=== PATIENT | female | born 1990 | race Caucasian/White ===

== ENCOUNTER 2019-08-15 09:02 | Outpatient (CLI) | payer OTHER, SELFPAY ==
[2019-08-21 10:42] LABS: Tissue Transglutaminase IgA Ab 1 U/mL (<4)
[2019-08-21 12:06] LABS: Tissue Transglutaminase IgG Ab 6 U/mL (<6)
== END 2019-08-15 09:03 | disposition home or self-care (01) ==
LOC: ANHLAB 09:04
PROVIDERS: PCP Family Medicine; Visit Provider Internal Medicine Gastroenterology
DX: R14.0 Abdominal distension (gaseous) (principal); R19.8 Other specified symptoms and signs involving the digestive system and abdomen
CPT/HCPCS: 36415; 83516

== ENCOUNTER 2020-11-22 12:03 | Emergency (ER) | payer OTHER, SELFPAY ==
[2020-11-22 12:20] VITALS: BP 126/87; PULSE 90; RESP 20; TEMP 36.9; O2SAT 99
--- NOTE | 2020-11-22 12:42 | ED.NAVMDI ---
HPI - Nausea/Vomiting/Diarrhea General Chief complaint: Nausea/Vomiting/Diarrhea Stated complaint: abd pain, nausea, constipation Time Seen by Provider: 11/22/20 12:05 Source: patient and RN notes reviewed Mode of arrival: ambulatory Limitations: no limitations History of Present Illness MD elicited complaint: nausea and abdominal pain Pertinent past history: other (H pylori gastritis) Onset (ago): day(s) (1) Associated nausea: Yes Associated abdominal pain: Yes Location of pain: periumbilical, RLQ and LLQ Radiation: diffuse Pain consistency: constant Severity: moderate Quality: cramping, aching and dull Exacerbating factors: none Relieving factors: none Related Data Home Medications Medication Instructions Recorded Confirmed dicyclomine 20 mg tablet 20 mg PO BID 08/15/19 fluoxetine 20 mg capsule 20 mg PO DAILY 08/15/19 Allergies Allergy/AdvReac Type Severity Reaction Status Date / Time No Known Allergies Allergy Unverified 08/15/19 08:29 Review of Systems Review of Systems: All systems reviewed & are unremarkable except as noted in HPI and below Gastrointestinal: Gastrointestinal: Reports as per HPI, Reports abdominal pain, Reports heartburn and Reports nausea PMFSH Past Medical History Medical History Alternating constipation and diarrhea Bloating Exam Const: General: no acute distress Nutritional Appearance: obese Orientation/consciousness: patient oriented x3 HENMT: Head: normal to inspection Ears: external ears normal and TM's normal bilaterally General nose exam: Normal external nose present and Normal nares present Mouth: Yes moist mucous membranes Eyes: Cornea: corneas normal Pupils: Equal, round and reactive pupils present EOM: EOMs intact bilaterally Neck: Neck: normal visual inspection and no lymphadenopathy Chest: Chest palpation & inspection: normal inspection of the chest Resp: Effort & Inspection: normal respiratory effort Auscultation: clear to auscultation bilaterally Cardio: Rate: regular rate Rhythm: regular rhythm GI: GI Palp: Yes Soft to palpation and Yes Tenderness to palpation present (GI) (generalized ) Percussion: Yes normal to percussion and Yes other (very tender both lower quadrants. ) : General: Yes bladder normal to palpation and Yes no CVA tenderness Back/Spine/Pelvis: Back: no CVA tenderness Other: minimal paraspinal lumbosacral back Skin: General skin exam: normal color Rashes: no rashes Neuro: General: patient oriented x3, moves all extremities, no meningeal signs, no focal motor deficits and CN's II-XI intact bilaterally Extrem: General: normal to inspection Psych: Appearance: well kempt Mental Status: mental status grossly normal Affect: Anxious affect present Attitude: cooperative Thought content: Yes Normal thought content present Course Course Emergency Course: Pt was stable in the ED. less abdominal pain and cramping. Pt refused the CT abdomen and pelvis. Reevaluation(s) Date: 11/22/20 Time: 13:26 Vital Signs Vital signs: Vital Signs Temperature 36.9 C 11/22/20 12:20 Pulse Rate 90 11/22/20 12:20 Respiratory Rate 20 11/22/20 12:20 Blood Pressure 126/87 11/22/20 12:20 Pulse Oximetry 99 11/22/20 12:20 Temperature 36.9 C 11/22/20 12:20 Pulse Rate 90 11/22/20 12:20 Respiratory Rate 20 11/22/20 12:20 Blood Pressure 126/87 11/22/20 12:20 Pulse Oximetry 99 11/22/20 12:20 MDM - Nausea/Vomiting/Diarrhea Differential Diagnosis Differential diagnosis: Likely gastroenteritis and other (gastritis, cholecystitis) Medical Records Attestation: I reviewed the patient's medical records. Lab Data Attestation: I reviewed the patient's lab results. Result diagrams: 11/22/20 12:48 11/22/20 12:48 Labs: Lab Results 11/22/20 11/22/20 11/22/20 Range/Units 12:48 12:48 12:48 WBC 7.8 (4.8-10.8) K/mm3 RBC 4
[2020-11-22 13:09] LABS: Basophils Absolute Auto 0.02 K/mm3 (0.00-0.10); Basophils Percent Auto 0.3 % (0.0-1.0); Eosinophils Absolute Auto 0.05 K/mm3 (0.02-0.50); Eosinophils Percent Auto 0.6 % (1.0-6.0); Hematocrit 38.9 % (35.0-49.0); Hemoglobin 12.3 g/dL (12.0-15.0); Immature Granulocyte Absolute 0.03 K/mm3 (0.00-0.00); Immature Granulocyte Percent A 0.4 % (0.0-0.0); Lymphocytes Absolute Auto 1.07 K/mm3 (1.10-4.50); Lymphocytes Percent Auto 13.7 % (18.0-42.0); Mean Corpuscular HGB Conc 31.6 g/dL (32.0-36.0); Mean Corpuscular Hemoglobin 27.1 pg (27.0-31.0); Mean Corpuscular Volume 85.7 fL (78.0-102.0); Mean Platelet Volume 9.5 fl (9.2-11.8); Monocytes Absolute Auto 0.51 K/mm3 (0.10-0.90); Monocytes Percent Auto 6.5 % (2.0-11.0); Neutrophils Absolute Auto 6.2 K/mm3 (1.7-7.2); Neutrophils Percent Auto 78.5 % (50.0-70.0); Platelet Count Result 239 K/mm3 (150-420); Red Blood Count 4.54 M/mm3 (4.20-5.40); Red Cell Distribution Width 13.5 % (11.6-14.4); White Blood Count 7.8 K/mm3 (4.8-10.8)
[2020-11-22] MEDS: PANTOPRAZOLE SODIUM IV 40 MG VIAL IV PUSH (13:10)
[2020-11-22] MEDS: SODIUM CHLORIDE 0.9% IV 1,000 ML 150 ML IV CONT (13:11)
[2020-11-22] MEDS: ONDANSETRON INJ 4 MG/2 ML VIAL IV PUSH (13:12)
[2020-11-22] MEDS: MORPHINE SULFATE (*CRX) 2 MG/ML INJ IV PUSH (13:12)
[2020-11-22] MEDS: MAG HYDROX/ALUMINUM HYD/SIMETH 30 ML, PHENobarb/HYOSCY/ATROPINE/SCOP 32.4 MG, LIDOCAINE... PO (13:13)
[2020-11-22 13:26] LABS: Add Urine Microscopic? YES; Appearance Urine Clear (Clear); Bilirubin Urine Negative (Negative); Blood Urine Negative (Negative); Color Urine Yellow (Yellow); Glucose Urine UA Negative (Negative); Ketones Urine Trace (Negative); Leukocyte Esterase Ur Negative (Negative); Nitrate Urine Negative (Negative); Protein Urine Negative (Negative); Specific Grav Ur >= 1.030 (1.010-1.020); Urobilinogen Urine 0.2 mg/dL (0.2-1.0)
[2020-11-22 13:37] LABS: Bacteria Urine 1+ /hpf; RBC Urine 0-2 /hpf (0-2); Squamous Epithelial Cell Urine Few /hpf (Few)
[2020-11-22 13:41] LABS: Alanine Aminotransferase 21 U/L (14-59); Albumin Level 3.8 g/dL (3.4-5.0); Alkaline Phosphatase 75 U/L (46-116); Aspartate Amino Transferase 15 U/L (15-37); Bilirubin,Total 0.3 mg/dL (0.00-1.00); Blood Urea Nitrogen 13 mg/dL (7-18); Calcium 8.6 mg/dL (8.5-10.1); Carbon Dioxide 25 mmol/L (21-32); Estimated CRCL calculation 110 ml/min; Estimated Glomerular Filt Rate > 60; Glucose 99 mg/dL (70-99); Lipase 110 U/L (73-393); Total Protein 7.5 g/dL (6.4-8.2)
[2020-11-22 14:07] LABS: Pregnancy On Board Control Positive; Urine Pregnancy Test Negative
--- NOTE | 2020-11-22 14:30 | PC.NURSE ---
[address] of abd state all the pain is gone now
[2020-11-22 14:57] VITALS: BP 127/72; PULSE 77; RESP 20; TEMP 37; O2SAT 100
[2020-11-22 20:09] LABS: Anion Gap 7 mmol/L (8-16); Chloride 109 mmol/L (98-108); Osmolality Calculated 292 mOsm/kg (285-295); Potassium 4.2 mmol/L (3.5-5.1); Sodium 141 mmol/L (136-145)
== END 2020-11-22 15:00 | disposition home or self-care (01) ==
PROVIDERS: Emergency Provider Emergency Medicine; PCP Nurse Practitioner Psychiatric/Mental Health
DX: K29.70 Gastritis, unspecified, without bleeding (principal); K29.80 Duodenitis without bleeding; N30.00 Acute cystitis without hematuria
CPT/HCPCS: 36415; 80053; 81001; 81025; 83690; 85025; 96361; 96374; 96375; 99283; 99284; A9270; C9113; J2270; J2405; J7030

== ENCOUNTER 2021-03-04 11:43 | Outpatient (CLI) | payer OTHER, SELFPAY ==
--- NOTE | ~2021-03-04 | XR_ITS ---
EXAMINATION: XR thoracic spine 3V DATE: 03/04/2021 12:15 INDICATION: Thoracic back pain. TECHNIQUE: 3 views of thoracic spine were obtained. COMPARISON: Chest 2 views 04/03/2016 FINDINGS: There is 5 degrees dextrocurvature of lower thoracic spine. There are Schmorl's nodes at mu ltiple levels in lower thoracic spine. Intervertebral disc heights are normal. There are endplate ost eophytes at multiple levels. IMPRESSION: 1. Mild thoracic spondylosis. Reviewed, dictated and finalized at location B. K GREASER
--- NOTE | ~2021-03-04 | XR_ITS ---
EXAMINATION: XR lumbar spine 2-3V DATE: 03/04/2021 12:16 INDICATION: Low back pain. TECHNIQUE: 3 views of lumbar spine were obtained. COMPARISON: Lumbar spine radiographs 07/15/2011. FINDINGS: There is 5 degrees levocurvature of lumbar spine. L3 is a limbus vertebra. There is mild ch ronic anterior wedging of T12 vertebral body. Intervertebral disc heights are normal. There are endpl ate osteophytes at T12-L1 and L1-L2. The facet joints are unremarkable. IMPRESSION: 1. Mild lumbar spondylosis. Reviewed, dictated and finalized at location B. IBLE PACKER IMPRESSION: 1. Mild lumbar spondylosis.
--- NOTE | ~2021-03-04 | XR_ITS ---
EXAMINATION: XR knee RT 3V DATE: 03/04/2021 12:17 INDICATION: Right knee injury. TECHNIQUE: 3 views of right knee were obtained. COMPARISON: None. FINDINGS: Bone alignment is normal. No fracture. Joint spaces are well maintained. There is no knee j oint effusion. IMPRESSION: 1. Normal right knee. Reviewed, dictated and finalized at location B. ICE PARTS COORDINATOR IMPRESSION: 1. Normal right knee.
== END 2021-03-04 11:44 | disposition home or self-care (01) ==
LOC: CHSIMG 11:46
PROVIDERS: PCP Nurse Practitioner Psychiatric/Mental Health; Visit Provider Nurse Practitioner Psychiatric/Mental Health
DX: M54.6 Pain in thoracic spine (principal); R10.9 Unspecified abdominal pain
CPT/HCPCS: 72072; 72100; 73562

== ENCOUNTER 2022-10-12 10:21 | Outpatient (CLI) | payer SELFPAY | END 2022-10-12 10:22 | disposition home or self-care (01) | LOC: CHSLAB 10:24 | PROVIDERS: PCP Family Medicine; Visit Provider Family Medicine | DX: Z71.3 Dietary counseling and surveillance (principal) | CPT/HCPCS: 99199 ==

== ENCOUNTER 2023-05-09 10:53 | Outpatient (CLI) | payer OTHER, SELFPAY ==
--- NOTE | ~2023-05-09 | US_ITS ---
EXAMINATION: US pelvic complete w TV DATE: 05/09/2023 11:25 INDICATION: Right Adnexal Tenderness TECHNIQUE: Multiple transabdominal and endovaginal sonographic images of the pelvis were obtained. COMPARISON: None. FINDINGS: Uterus: 9.0 x 4.3 x 3.7 cm. Somewhat heterogeneous appearing uterine parenchyma with areas of shadowi ng. Endometrial complex measures 13 mm. Right Ovary: 2.6 x 1.4 x 1.8 cm. Vascular flow is present. No adnexal mass. Left Ovary: 5.6 x 3.8 x 5.6 cm. Vascular flow is present. 4.7 x 5.5 x 3.2 cm complex cyst with ground glass internal echoes and peripheral foci of echogenicity. There is physiologic free fluid in the cul-de-sac. IMPRESSION: 5.5 cm left ovarian/adnexal endometrioma. If not surgically excised, consider yearly follow-up. Heterogeneous, shadowing uterine parenchyma as can be seen with adenomyosis. Reviewed, dictated and finalized at location K. L SAWYER IMPRESSION: 5.5 cm left ovarian/adnexal endometrioma. If not surgically excised, consider y early follow-up. Heterogeneous, shadowing uterine parenchyma as can be seen with adenomyosis.
== END 2023-05-09 10:54 | disposition home or self-care (01) ==
LOC: CHSIMG 10:55
PROVIDERS: PCP Family Medicine; Visit Provider Nurse Practitioner
DX: N80.122 Deep endometriosis of left ovary (principal); R10.2 Pelvic and perineal pain
CPT/HCPCS: 76830; 76856

== ENCOUNTER 2023-05-19 00:32 | Day surgery (SDC) | payer OTHER, SELFPAY ==
--- NOTE | 2023-05-18 16:28 | P.HP_ITS ---
H&P: HPI History of Present Illness Date/Time: 05/18/23 16:28 Chief Complaint: severe left-sided pain and complex ovarian cyst on ultrasound Narrative: she 32-year-old female 1 para 1 who I saw in the office on 05/04 06/27 for follow-up from ultrasound. Her primary care ordered ultrasound and there was a complex 6cm that appears to be either a an endometrioma or a torsion. She is admitted for laparoscopic left cystectomy and possible left oophorectomy. Risks and benefits reviewed including the , aspiration bleeding transfusion perforation, bladder ureters other internal for open. She received the [employer] handout entitled laparoscopy. She had all questions answered. She asked to proceed. [facility] Past Medical History Medical History Alternating constipation and diarrhea Bloating Meds Home Medications and Allergies Home Medications Medication Instructions Recorded Confirmed Type cholestyramine (with sugar) 4 gram 4 gm PO DAILY #378 grams 08/15/19 08/15/19 Rx oral powder dicyclomine 20 mg tablet 20 mg PO BID 08/15/19 History fluoxetine 20 mg capsule (Prozac) 20 mg PO DAILY 08/15/19 History peg 3350-electrolytes 236 240 ml PO Q10M #4,000 mL 09/05/19 Rx gram-22.74 gram-6.74 gram-5.86 gram solution (Golytely) acetaminophen 325 mg capsule 650 mg PO Q8H PRN pain #20 caps 11/22/20 Rx (Tylenol) omeprazole magnesium 20 mg 20 mg PO BID #20 tabs 11/22/20 Rx tablet,delayed release (Prilosec OTC) sulfamethoxazole 800 1 tablet PO Q12H #20 tabs 11/22/20 Rx mg-trimethoprim 160 mg tablet (Bactrim DS) Allergies Allergy/AdvReac Type Severity Reaction Status Date / Time No Known Allergies Allergy Unverified 08/15/19 08:29 Exam Const: General: cooperative, healthy appearing and overweight Orientation/consciousness: oriented to person, oriented to place and oriented to time HENMT: Head: normal to inspection Resp: Effort & Inspection: normal respiratory effort Cardio: Rate: regular rate Rhythm: regular rhythm Heart sounds: S1 normal heart sound present and S2 normal heart sound present GI: Inspection: normal to inspection : External Female Exam: normal external appearance Speculum Exam - Vagina: normal appearance of the vagina Speculum Exam - Cervix: normal appearance of the cervix Bimanual Exam- Adnexa, other: Adnexal mass present on the left tender Assessment and Plan Assessment and plan (1) Pelvic pain: Code(s): R10.2 - Pelvic and perineal pain Status: Acute (2) Complex cyst of left ovary: Code(s): N83.292 - Other ovarian cyst, left side Status: Acute Plan will proceed with laparoscopy and left cystectomy possible left oophorectomy
--- NOTE | 2023-05-18 17:08 | PC.NURSE ---
Report to the Outpatient Waiting Room, entrance under the green pavilion located off [facility], at time 1400 on date 05/19/23. Planned Procedure Time: 1600. Time changes happen often and if your time is changed the preop area will call you the afternoon before. - You and your visitor will be asked to self-screen and do not enter if you have any COVID symptoms. - A mask is optional within the hospital at this time. Patients may have clear liquids (water, carbonated beverages, clear teas, apple juice) until 3 hours prior to surgery with a maximum of 20 ounces. 1300 - No food from midnight until time of surgery - Infants may have breast milk until 4 hours before surgery, formula 6 hours prior to surgery. - Children will be allowed to drink immediately following surgery. If applicable, please bring a bottle or sippy cup to assist with drinking. Juice, water, soda, and popsicles are readily available. For infants on formula, please bring formula the day of surgery. Pacifiers are allowed. Take the following medications with a SIP of water the morning of surgery: None DO NOT STOP ANY OF YOUR OTHER PRESCRIPTION MEDICATIONS PRIOR TO SURGERY ?EXCEPT THE FOLLOWING Medications to discontinue per physician Date to take last dose Please no make-up, nail turkmen, hairspray, perfume, deodorant, or body powder the day of surgery. No jewelry (including any body piercings) or valuables the day of surgery, leave them at home. Please take a shower or bath the night before, or the morning of, surgery with an antibacterial soap. Wear comfortable, loose fitting clothing. Children are encouraged to wear pajamas. - Jewelry must be removed prior to entering the operating room. Rings and piercings that are not removed may be cut off. - The hospital will not accept responsibility for valuables. - Please leave all valuables, including medications, at home the day of surgery. If you are going home after surgery, a licensed auto transport driver must drive you home. - NO public transportation without another adult if you receive anesthesia. - We recommend that an adult stay with you for 24 hours following discharge. - We also recommend that you do not drive, make important decision, drink alcoholic beverages, or take any drugs that were not prescribed by your health care provider for at least 24 hours after your discharge time. For Pediatric surgeries, we recommend two adults accompany the child home. Follow any additional instructions given to you from your surgeon. If you or anyone in your household have experienced Covid symptoms in the past week, please notify your surgeon or the nurse liaison at the phone number below for possible testing. Telephone instructions given to Patient- Marlene Marie and asked if any additional questions and then verbalized understanding. Patient advised to call surgeon office or pre surgery nurse liaison [phone] if any additional questions.
[2023-05-18 17:14] VITALS: BMI 38.8
[2023-05-19] VITALS (12 sets, daily range): BP systolic 109–136; BP diastolic 63–86; PULSE 61–90; RESP 12–20; TEMP 36.5–37.1; O2SAT 95–100
--- NOTE | 2023-05-19 06:38 | WPDHPUPDATE1 ---
History and Physical Update Update Date/Time: 05/19/23 06:38 History and Physical has been reviewed, including an updated exam of the patient. There are NO changes in the patient's condition. Risks, benefits, and alternatives have been discussed and questions answered. Patient agrees to proceed with procedure.
--- NOTE | 2023-05-19 14:19 | P.PNAN_ITS ---
Anes - Initial Pre Proc Eval Procedure: Operation Date: 05/19/23 16:00 Proposed Procedures p Laparoscopy with Left Ovarian Cystectomy, Possible Left Ovarian Oophoretomy - Santos Arriaga MD Date/Time: 05/19/23 14:19 Surgeon: Santos Arriaga MD Pre Op Diagnosis: Pain, Lt Ovarian Cyst, Possible Lt Ovarian Torsion Patient Data Age: 32 Gender: F Height: 1.63 m Weight: 102.7 kg Allergies Allergy/AdvReac Type Severity Reaction Status Date / Time No Known Allergies Allergy Verified 05/18/23 16:54 Home Medications Medication Instructions Recorded Confirmed Type Adult Multivitamin Gummies 1 gum PO DAILY 05/18/23 05/18/23 History All Day Allergy (cetirizine) 1 tab-cap PO DAILY 05/18/23 05/18/23 History dextroamphetamine-amphetamine 5 mg 5 mg PO DIRECTED 05/18/23 05/18/23 History tablet dextroamphetamine-amphetamine ER 10 mg PO DAILY 05/18/23 05/18/23 History 10 mg 24hr capsule,extend release omeprazole 40 mg capsule,delayed 40 mg PO DAILY 05/18/23 05/18/23 History release hydrocodone 5 mg-acetaminophen 325 1 tablet PO Q4H PRN pain #30 tabs 05/19/23 Rx mg tablet Patient hx anesthesia problems: none Family hx anesthesia problems: none Results Review: All pre-operative results and documents have been reviewed as part of the pre- operative evaluation. [facility] Past Medical History Medical History (Updated 05/19/23 @ 14:20 by Srinath Robbins DO) Alternating constipation and diarrhea Anxiety Asthma Bloating Social History Social History Tobacco type: e-cigarettes/vaping Alcohol intake: current Alcohol use details: monthly Spiritual care concerns: No Anes - Eval Final PreProcedure Day of Procedure 05/19/23 14:19 Patient weight: obese Heart: regular rate and rhythm Lungs: clear to auscultation Airway: Mallampati scale class 1 Neurological: alert and oriented Last oral intake: >/= 8 hours ASA classification: III Emergent: no Anesthetic plan: proceed Anesthesia type and monitoring: general ETT and standard monitoring Results Review: All pre-operative results and documents have been reviewed as part of the pre- operative evaluation. Informed Consent: The patient's anesthetic plan and its attendant risks and benefits were discussed with the patient/family/POA. Questions were solicited and answers provided to the satisfaction of the patient/family/POA.
[2023-05-19] MEDS: SCOPOLAMINE 1 MG PATCH 1 PATCH TRANSDERM (14:47)
[2023-05-19] MEDS: ACETAMINOPHEN 500 MG TABLET 1000 MG PO (14:48)
[2023-05-19] MEDS: KETOROLAC 15 MG/ML VIAL (*BKC) IV PUSH (14:48)
[2023-05-19] MEDS: LACTATED RINGERS 1,000 ML 30 ML IV CONT ×2 (14:50→16:13)
--- NOTE | 2023-05-19 15:59 | P.OP_ITS ---
Procedure Note - Detailed Date of Procedure 05/19/23 Pre-op Diagnosis Pain, Lt Ovarian Cyst, Possible Lt Ovarian Torsion Post-op Diagnosis Other (Endometrioma) Procedure Performed laparoscopic LSO lysis of adhesions Surgeon Santos Arriaga MD Anesthesia General Indications this is a 32-year-old female with complex left ovarian cyst Findings stage IV endometriosis with endometriosis of the left and right uterosacral ligament in the each ovarian fossa atop the bladder Description of Procedure patient was prepped draped in normal sterile fashion placed in the dorsal lithotomy position. Under excellent general trach anesthesia weighted speculum placed posterior fornix vagina. Anterior lip of the cervix grasped with single- tooth tenaculum. The Caban's cannula inserted the cervix and attached to the single-tooth to be used later for uterine ablation. The bladder was emptied of clear urine the weighted speculum was removed. A supraumbilical incision made the Veress needle passed in the abdomen. Abdomen filled with CO2 gas 15mmmmmercury the 5mm trocar advanced under direct visualization assuring no injury the patient placed in Trendelenburg a suprapubic incision made. The 5mm trocar advanced under direct visualization assuring no injury in left lower quadrant incision was made and the 10mm trocar advanced under direct visualization multiple adhesions and a large endometrioma was seen this was completely encasing the the ovary and tube. The infundibulopelvic structure was skeletonized clamped burned cut and the tube and ovary removed through the left lower quadrant incision. Vigorous irrigation undertaken until clear. The opposite ovary we were was of the normal limits but there were areas of powder burn endometriosis on the bladder which was not removed. Blood loss was estimated at25cc lower site removed. The gas removed from the abdomen the upper site removed the incisions closed with 4 Monocryl glue patient went recovery in satisfactory condition. All sponge, needle, instrument counts were correct. There were no immediate complications Estimated Blood Loss 25 Drains No Packing No Pathology Yes Complications No immediate complications Condition Stable Disposition PACU
[2023-05-19] MEDS: fentaNYL CITRATE INJ (*CRX) 100 MCG/2 ML VIAL 25 MCG IV PUSH ×8 (17:02→17:27)
[2023-05-19] MEDS: ONDANSETRON INJ 4 MG/2 ML VIAL IV PUSH (17:55)
== END 2023-05-19 19:15 | disposition home or self-care (01) ==
PROVIDERS: PCP Family Medicine; Visit Provider Obstetrics & Gynecology
PROC: (CPT 49320; principal; 2023-05-19 16:00)
DX: N80.3C3 Endometriosis of bilateral uterosacral ligament(s), unspecified depth (principal); N80.102 Endometriosis of left ovary, unspecified depth; N80.A0 Endometriosis of bladder, unspecified depth; F17.290 Nicotine dependence, other tobacco product, uncomplicated; E66.9 Obesity, unspecified; Z68.38 Body mass index [BMI] 38.0-38.9, adult; N94.89 Other specified conditions associated with female genital organs and menstrual cycle; N83.02 Follicular cyst of left ovary
CPT/HCPCS: 58661; 58662; 36415; 86850; 86900; 86901; 88305; A9270; J0330; J1100; J1170; J1885; J2250; J2405; J2704; J3010; J7030; J7120

== ENCOUNTER 2023-05-22 18:07 | Emergency (ER) | payer OTHER, SELFPAY ==
--- NOTE | ~2023-05-22 | CT_ITS ---
EXAMINATION: CT abdomen pelvis w con DATE: 05/22/2023 19:36 INDICATION: Left lower quadrant pain post-op TECHNIQUE: Computed tomography (CT) of the abdomen and pelvis was performed with intravenous contrast . Automated exposure control and iterative reconstruction technique were employed. The dose-length pr oduct was 1264.01 mGy-cm. COMPARISON: None. FINDINGS: Lower thorax: Unremarkable Liver: Normal. Biliary/Gallbladder: Gallbladder is normal. No bile duct dilation. Pancreas: No mass or duct dilation. Spleen: Normal. Adrenals:No mass. Kidneys: No suspicious mass, obstructing stone, or hydronephrosis. GI tract: No small or large bowel dilation. Normal appendix. Mesentery/Peritoneum: No ascites, mass, or free air. Retroperitoneum: No mass. Pelvis: 3.2 cm gas collection in the deep left pelvis with the suggestion of mild peripheral enhancem ent. Small volume free pelvic fluid. Normal uterus and right ovary. Normal urinary bladder. Soft Tissues: Subcutaneous gas and stranding from recent surgery. No focal fluid collection. Bones: No acute osseous finding. IMPRESSION: Focal 3.2 cm fluid and gas collection in the deep left pelvis with mild peripheral enhancement, tammy rning for early abscess. Reviewed, dictated and finalized at location K. IMPRESSION: Focal 3.2 cm fluid and gas collection in the deep left pelvis with mild periphe ral enhancement, concerning for early abscess.
[2023-05-22 18:08] VITALS: BP 119/88; PULSE 84; RESP 20; TEMP 36.9; O2SAT 100
[2023-05-22 18:38] LABS: Basophils Absolute Auto 0.02 K/mm3 (0.00-0.10); Basophils Percent Auto 0.2 % (0.0-1.0); Eosinophils Absolute Auto 0.07 K/mm3 (0.02-0.50); Eosinophils Percent Auto 0.7 % (1.0-6.0); Hematocrit 36.3 % (35.0-49.0); Hemoglobin 11.8 g/dL (12.0-15.0); Immature Granulocyte Absolute 0.02 K/mm3 (0.00-0.00); Immature Granulocyte Percent A 0.2 % (0.0-0.0); Lymphocytes Absolute Auto 1.88 K/mm3 (1.10-4.50); Lymphocytes Percent Auto 18.7 % (18.0-42.0); Mean Corpuscular HGB Conc 32.5 g/dL (32-36); Mean Corpuscular Hemoglobin 26.8 pg (27.0-31.0); Mean Corpuscular Volume 82.3 fL (78.0-102.0); Monocytes Absolute Auto 0.48 K/mm3 (0.10-0.90); Monocytes Percent Auto 4.8 % (2.0-11.0); Neutrophils Absolute Auto 7.57 K/mm3 (1.70-7.20); Neutrophils Percent Auto 75.4 % (50.0-70.0); Platelet Count Result 306 K/mm3 (150-420); Red Blood Count 4.41 M/mm3 (4.20-5.40); Red Cell Distribution Width 13.6 % (11.6-14.4)
[2023-05-22] MEDS: SODIUM CHLORIDE 0.9% IV 2,000 ML 999 ML IV CONT (18:44)
[2023-05-22] MEDS: MORPHINE SULFATE (*CRX) 4 MG/ML INJ IV PUSH (18:46)
[2023-05-22] MEDS: ONDANSETRON INJ 4 MG/2 ML VIAL IV PUSH (18:46)
[2023-05-22 18:52] LABS: Alanine Aminotransferase 18 U/L (14-59); Albumin Level 3.6 g/dL (3.4-5.0); Alkaline Phosphatase 64 U/L (46-116); Anion Gap 8 mmol/L (8-16); Aspartate Amino Transferase 12 U/L (15-37); Bilirubin,Total 0.3 mg/dL (0.00-1.00); Blood Urea Nitrogen 9 mg/dL (7-18); Carbon Dioxide 31 mmol/L (21-32); Chloride 104 mmol/L (98-108); Estimated CRCL calculation 127 ml/min; Estimated Glomerular Filt Rate > 60; Glucose 93 mg/dL (70-99); Osmolality Calculated 294 mOsm/kg (285-295); Potassium 3.7 mmol/L (3.5-5.1); Sodium 143 mmol/L (136-145); Total Protein 7.4 g/dL (6.4-8.2)
--- NOTE | 2023-05-22 18:53 | ED.ABDPAIN ---
HPI - Abdominal Pain General Chief Complaint: Abdominal Pain Stated Complaint: abdominal pain - post surgical Time Seen by Provider: 05/22/23 18:19 History of Present Illness HPI narrative: This is a 32-year-old female, who 3 days ago underwent left sided LSO with removal of an endometrial tumor, who presents to the emergency department complaining of severe left lower quadrant abdominal pain. The patient states for 2 days after her surgery, she had no complications. Overnight, she began developing cramping lower abdominal pain. This gradually increased to a current 9/10. The pain is intermittent and associated with nausea, though no vomiting. She states her last bowel movement was this morning and she has since not been able to pass gas. She denies bleeding, loss of consciousness, diarrhea or dysuria. Related Data Home Medications Medication Instructions Recorded Confirmed Adult Multivitamin Gummies 1 gum PO DAILY 05/18/23 05/22/23 All Day Allergy (cetirizine) 1 tab-cap PO DAILY 05/18/23 05/22/23 dextroamphetamine-amphetamine 5 mg 5 mg PO DIRECTED 05/18/23 05/22/23 tablet dextroamphetamine-amphetamine ER 10 mg PO DAILY 05/18/23 05/22/23 10 mg 24hr capsule,extend release omeprazole 40 mg capsule,delayed 40 mg PO DAILY 05/18/23 05/22/23 release Allergies Allergy/AdvReac Type Severity Reaction Status Date / Time No Known Allergies Allergy Verified 05/22/23 18:19 Review of Systems Review of Systems: CONSTITUTIONAL: Denies fever, chills, or sweats. CARDIOVASCULAR: Denies chest pain, palpitations, or edema. RESPIRATORY: Denies cough or dyspnea. GASTROINTESTINAL: Severe abdominal pain, nausea Denies vomiting, or diarrhea. GENITOURINARY: Denies dysuria or hematuria. SKIN: Denies rash or itching. MUSCULOSKELETAL: Denies back pain, joint pain, or myalgia. NEUROLOGIC: Denies headache, numbness, dizziness, or weakness. PSYCHIATRIC: Denies anxiety or depression. [facility] Past Medical History Medical History (Updated 05/22/23 @ 20:51 by Alexandre Carvalho MD) Alternating constipation and diarrhea Anxiety Asthma Bloating Endometrioma Endometriosis Surgical History Surgical History (Updated 05/22/23 @ 19:01 by Alexandre Carvalho MD) History of left salpingo-oophorectomy 05/19/2023 Social History Social History Tobacco type: e-cigarettes/vaping Alcohol intake: current Alcohol use details: monthly Spiritual care concerns: No Exam Narrative: GENERAL: Well-developed, well-nourished, in moderate distress due to pain HEAD: Normocephalic, atraumatic. EYES: PERRLA and EOMI. CHEST: Clear to auscultation. No respiratory distress. No wheezes rales or rhonchi HEART: Regular rate and rhythm. No murmur heard. Normal peripheral pulses. ABDOMEN: Multiple well-healed laparoscopic surgical wounds without induration, erythema, bleeding or purulent drainage. Abdomen soft, tender primarily in the left lower quadrant, without rebound, mildly distended, hyperactive bowel sounds. EXTREMITIES: Normal range of motion. No edema. SKIN: Warm, dry, no rash. NEURO: Alert and oriented x3. No focal deficit. Moving all 4 limbs spontaneously PSYCH: Normal mood and affect. Course Course Emergency Course: 18:59 - Review of prior documentation shows the patient underwent left LSO with lysis of adhesions and resection of an endometrioma. The patient has a documented negative test from May 19, 2023. She has not been sexually active. 20:19 - CBC demonstrates mild anemia with hemoglobin of 11.8 but is otherwise unremarkable. Chemistries within normal limits. Lactic acid 1.2. UA not concerning for UTI. CT abdomen pelvis demonstrates Focal 3.2 cm fluid and gas collection in the deep left pelvis with mild peripheral enhancement, concerning for early abscess. will discuss patient with [facility] physician, Dr. Augustine Arriaga or on-call residential team leader to discuss an
[2023-05-22 18:57] LABS: Lactic Acid Reflex 1.2 mmol/L (0.4-2.0)
--- NOTE | 2023-05-22 19:03 | PC.NURSE ---
patient report received from DREW Crespo. patient awaiting results and plan. RN monitoring. ivf infusing.
--- NOTE | 2023-05-22 19:14 | PC.NURSE ---
patient to ct scan via stretcher per trade specialist.
--- NOTE | 2023-05-22 19:38 | PC.NURSE ---
patient returned from imaging, awaiting results. ambulatory to bathroom, reports improved pain for brief time however states her pain is still cramping .
[2023-05-22] MEDS: HYDROmorphone HCL INJ (*CRX) 2 MG/ML VIAL 0.5 MG IV PUSH (20:00)
[2023-05-22 20:06] VITALS: BP 110/63; PULSE 74; RESP 18; TEMP 37.1; O2SAT 100
--- NOTE | 2023-05-22 20:08 | PC.NURSE ---
patient medicated for pain, see MAR. first liter of NS nearing completion. patient visitor at bedside. update provided. vss. RN monitoring, call light within reach.
[2023-05-22 20:15] LABS: Appearance Urine Clear (Clear); Bilirubin Urine Negative (Negative); Blood Urine Negative (Negative); Color Urine Light Yellow (Yellow); Glucose Urine UA Negative (Negative); Ketones Urine Negative (Negative); Leukocyte Esterase Ur Negative LEU/UL (Negative); Nitrate Urine Negative (Negative); Protein Urine Negative (Negative); Specific Grav Ur <= 1.005 (1.010-1.020); Urobilinogen Urine 0.2 mg/dL (0.2-1.0)
[2023-05-22 20:18] LABS: Add Urine Microscopic? NO
--- NOTE | 2023-05-22 20:29 | PC.NURSE ---
ERP Dr. Carvalho at patient bedside for update after speaking with patient ob-solid waste landfill technician Augustine Arriaga at [facility]. plan for transfer pending bed assignment.
--- NOTE | 2023-05-22 21:04 | PC.NURSE ---
phlebotomy at bedside for blood culture draw, patient education provided. patient awake and alert, agreeable to transfer to [facility] however concerned for cost associated with taking an ambulance. Patient requesting to drive herself (significant other to drive) to inpatient bed at transfer facility, refusing ambulance. VSS and patient awake and alert without distress at this time.
--- NOTE | 2023-05-22 21:19 | PC.NURSE ---
patient ambulatory to bathroom, blood cultures completed. RN hung patient IV antibiotic however IV was infiltrated and unable to infuse. ERP updated, new orders obtained as patient remains wishing to take private vehicle to transfer hospital.
[2023-05-22] MEDS: cefTRIAXone 1 GM, LIDOCAINE HCL 1% LOCAL INJ 2.1 ML IM (21:45)
--- NOTE | 2023-05-22 21:47 | PC.NURSE ---
patient medicated at this time, see MAY. patient education provided by RN, including need to stay NPO now as well as during transfer. RN again offered EMS transport to transfer facility to patient again at this time. patient refused, getting dressed into her clothing from hospital gown.
[2023-05-22 22:00] LABS: Glucose Point of Care 92 mg/dl (65-105)
--- NOTE | 2023-05-29 18:34 | PC.NURSE ---
05/29/23 blood culture no growth after 5 days
== END 2023-05-22 22:00 | disposition short-term general hospital (02) ==
PROVIDERS: Emergency Provider Preventive Medicine Aerospace Medicine; PCP Family Medicine
DX: N99.89 Other postprocedural complications and disorders of genitourinary system (principal); R10.32 Left lower quadrant pain; F41.9 Anxiety disorder, unspecified; F17.290 Nicotine dependence, other tobacco product, uncomplicated; Z79.899 Other long term (current) drug therapy
CPT/HCPCS: 36415; 74177; 80053; 81003; 82948; 83605; 85025; 87040; 96361; 96372; 96374; 96375; 99285; J0696; J1170; J2270; J2405; J7030; Q9967

== ENCOUNTER 2023-05-22 22:50 | Observation (INO) | payer OTHER, SELFPAY ==
--- NOTE | ~2023-05-22 | CT_ITS ---
EXAMINATION: CT abdomen pelvis wo con DATE: 05/23/2023 09:45 INDICATION: Postoperative abdominal pain TECHNIQUE: Computed tomography (CT) of the abdomen and pelvis was performed without intravenous contr ast. Iterative reconstruction technique was employed. The dose-length product was 1179.21 mGy-cm. COMPARISON: 05/22/2023 FINDINGS: Lung bases are clear. Heart size is normal. No pericardial or pleural effusion. There is some kathryn usly excreted contrast in the normal gallbladder from the earlier contrast-enhanced study. Liver, spl een, pancreas, bilateral adrenal glands and kidneys are normal. Bowels including the appendix are nor mal. There are some additional excreted contrast in the bladder. Anteverted uterus and right adnexa a re unremarkable. No significant change in a small amount of fluid in the deep pelvis including at the site of a reported left salpingo-oophorectomy. The prior small foci of gas at the operative bed have resolved. There is some residual postoperative soft tissue gas in the subcutaneous fat of the left a nterior pelvis. No pathologically enlarged abdominal or pelvic lymphadenopathy. Moderate thoracic and mild lumbar spondylosis. Normal variant L3 limbus vertebra with unfused apophyseal center along the anterosuperior margin of the vertebral body. IMPRESSION: 1. Postoperative change of recent left salpingo-oophorectomy with with unchanged small amount of free fluid in the operative bed and cul-de-sac with resolution of the prior small amount of associated ga s. Reviewed, dictated and finalized at location A. IMPRESSION: 1. Postoperative change of recent left salpingo-oophorectomy with with unchange d small amount of free fluid in the operative bed and cul-de-sac with resolutio n of the prior small amount of associated gas.
[2023-05-22 22:55] VITALS: BP 116/73; PULSE 73; RESP 17; TEMP 36.7; O2SAT 100; BMI 39.3
--- NOTE | 2023-05-22 22:56 | ADMGEN ---
This patient, Marlene Marie, was admitted to Medical Room 243-01. Patient/family oriented to hospital policies and general routines including ID bracelet, bed and alarms, visiting hours, pain management, procedures, bathroom and other care routines, personal items, smoking policy, room service/diet, and visiting hours. Information on how to activate the Rapid Response Team has been discussed. Patient/Family are encouraged to report perceived risks to care and to ask questions if they do not understand what they are told or what they should do.
[2023-05-22] MEDS: BISACODYL 10 MG SUPPOSITORY RECTAL (23:31)
[2023-05-22] MEDS: ceFAZolin 1 GM/NS 50 ML 1 GM/50 ML BAG IVPB (23:34)
[2023-05-22] MEDS: DEXTROSE 5%/LACTATED RINGERS 1,000 ML 125 ML IV CONT (23:35)
[2023-05-23 04:44] VITALS: BP 96/50; PULSE 62; RESP 17; TEMP 36.8; O2SAT 99
--- NOTE | 2023-05-23 06:16 | PM.IMHP ---
H&P: HPI History of Present Illness Date/Time: 05/23/23 06:16 Chief Complaint: Left lower quadrant pain Narrative: 32-year-old female who underwent a laparoscopic LSO due to a endometrioma last Thierry admitted with constipation. Ultrasound and CT scan showed a collection of fluid in the left lower quadrant so she is admitted for the possibility of abscess. Her white count ovaries completely normal and she so she is admitted for IV antibiotics and repeat CT in the a.[facility] Past Medical History Medical History Alternating constipation and diarrhea Anxiety Asthma Bloating Endometrioma Endometriosis Surgical History Surgical History History of left salpingo-oophorectomy 05/19/2023 Family History Family History Father Asthma Diabetes mellitus Sibling Asthma Diabetes mellitus Grandparent Chronic obstructive pulmonary disease Congestive heart failure Diabetes mellitus Father Chronic obstructive pulmonary disease Social History Social History Smoking status: Former smoker Tobacco type: e-cigarettes/vaping Alcohol intake: never Alcohol use details: monthly Substance use: never Do You Feel Safe in your Home?: Yes Lack of Transportation: No Lack of Food: Never True Current Housing: I Have Housing Concerned About Future Housing: No Difficulty Paying Gas/Electric Bills: No Difficulty Paying for Meds: No Currently Unemployed: No Education: High School Diploma/GED Difficulty w/ Childcare or Family Care: No Spiritual care concerns: No Meds Home Medications and Allergies Home Medications Medication Instructions Recorded Confirmed Type Adult Multivitamin Gummies 1 gum PO DAILY 05/18/23 05/22/23 History All Day Allergy (cetirizine) 1 tab-cap PO DAILY 05/18/23 05/22/23 History dextroamphetamine-amphetamine 5 mg 5 mg PO DAILY 05/18/23 05/22/23 History tablet dextroamphetamine-amphetamine ER 10 mg PO DAILY 05/18/23 05/22/23 History 10 mg 24hr capsule,extend release omeprazole 40 mg capsule,delayed 40 mg PO DAILY 05/18/23 05/22/23 History release hydrocodone 5 mg-acetaminophen 325 1 tablet PO Q4H PRN Pain (Scale 05/22/23 05/22/23 History mg tablet Score 4-6) Allergies Allergy/AdvReac Type Severity Reaction Status Date / Time No Known Allergies Allergy Verified 05/22/23 18:19 Vital Signs Vital Signs - 24 hr 05/22/23 23:10 05/22/23 22:55 05/23/23 04:44 Temperature 98.1 F 98.3 F Pulse Rate 73 62 Respiratory Rate 17 17 Blood Pressure 116/73 96/50 L Pulse Oximetry 100 99 Oxygen Delivery Room Air Exam Const: General: cooperative, healthy appearing and comfortable Nutritional Appearance: average body habitus Orientation/consciousness: oriented to person, oriented to place and oriented to time HENMT: Head: normal to inspection Resp: Effort & Inspection: normal respiratory effort Cardio: Rate: regular rate Rhythm: regular rhythm Heart sounds: S1 normal heart sound present and S2 normal heart sound present GI: Inspection: normal to inspection GI Palp: Yes abdominal tenderness ( mild left) Assessment and Plan Assessment and plan (1) Pelvic pain: Code(s): R10.2 - Pelvic and perineal pain Status: Acute (2) Constipation: Code(s): K59.00 - Constipation, unspecified Status: Acute Plan IV ABX antibiotics started. Repeat white count and CT this morning
--- NOTE | 2023-05-23 06:19 | P.PNOB_ITS ---
PEDIATRIC CARE COORDINATOR - A/P Postoperative Postoperative day: 1 Postoperative status: doing well Postoperative plan: other ( await results of CT and white count. We will feed if that remains normal sent home) Time Spent With Patient Time: Total time spent is greater than 50% in coordination of care (as documented) at patient's floor/unit and/or counseling patient: Time with patient: less than 15 minutes PEDIATRIC CARE COORDINATOR- PN:Subj Post-Op Subjective Date/time seen: 05/23/23 06:19 Subjective: patient reports feeling better, pain is well controlled and other ( had a bowel movement) Exam Const: General: cooperative, healthy appearing and comfortable Nutritional Appearance: average body habitus Orientation/consciousness: oriented to p erson, oriented to place and oriented to time Resp: Effort & Inspection: normal respiratory effort Cardio: Rate: regular rate Rhythm: regular rhythm Heart sounds: S1 normal heart sound present and S2 normal heart sound present GI: Inspection: normal to inspection GI Palp: Yes abdominal tenderness ( markedly less tenderness) PEDIATRIC CARE COORDINATOR - PN: Obj Data Vital Signs Vital Signs: Vital Signs - 24 hr 05/22/23 23:10 05/22/23 22:55 05/23/23 04:44 Temperature 98.1 F 98.3 F Pulse Rate 73 62 Respiratory Rate 17 17 Blood Pressure 116/73 96/50 L Pulse Oximetry 100 99 Oxygen Delivery Room Air Intake/Output Intake/Output: Intake & Output 05/20/23 05/21/23 05/22/23 05/23/23 23:59 23:59 23:59 23:59 Intake Total 50 Balance 50 Meds/Results Medications: Active Medications Generic Name Dose Route Start Last Admin Trade Name Freq PRN Reason Stop Dose Admin Hydrocodone Bitart/Acetaminophen 1 tab 05/22/23 21:02 Hydrocodone/Acetaminophen (*Crx) 5-325 Mg Tablet PO 05/24/23 21:01 Q6H PRN Pain Rated 4-6 Dextrose/Lactated Ringer's 1,000 mls @ 125 mls/hr 05/22/23 21:05 05/22/23 23:35 Dextrose 5%/Lactated Ringers IV CONT 125 mls/hr .Q8H ALEXA Administration Metoclopramide HCl 5 mg 05/22/23 21:05 Metoclopramide Hcl Inj 10 Mg/2 Ml Vial IV PUSH 05/24/23 21:04 Q6HR PRN Nausea
[2023-05-23 08:40] LABS: Basophils Percent Auto 0.4 % (0.2-1.2); Eosinophils Absolute Auto 0.1 K/mm3 (0-0.3); Eosinophils Percent Auto 0.7 % (0-4.4); Hematocrit 38.4 % (37.0-47.0); Hemoglobin 11.8 g/dL (12.0-15.0); Immature Granulocyte Absolute 0.02 K/mm3 (0.00-0.031); Immature Granulocyte Percent A 0.3 % (0-0.5); Lymphocytes Absolute Auto 1.91 K/mm3 (0.9-3.2); Mean Corpuscular HGB Conc 30.7 g/dl (32-36); Mean Corpuscular Hemoglobin 26.3 pg (26-34); Mean Corpuscular Volume 85.7 fl (80-100); Mean Platelet Volume 9.9 fl (7.4-10.4); Monocytes Absolute Auto 0.4 K/mm3 (0.1-0.6); Monocytes Percent Auto 6.2 % (2.6-8.5); Neutrophils Absolute Auto 4.6 K/mm3 (1.3-6.7); Neutrophils Percent Auto 65.4 % (45.5-73.1); Platelet Count Result 353 k/mm3 (150-375); Red Blood Count 4.48 M/mm3 (4.2-5.4); White Blood Count 7.1 K/mm3 (4.5-10.0)
[2023-05-23 09:20] VITALS: RESP 18; O2SAT 99
--- NOTE | 2023-05-23 12:02 | PM.GYNPNOP ---
SAXOPHONE ASSEMBLER - A/P Time Spent With Patient Time: Total time spent is greater than 50% in coordination of care (as documented) at patient's floor/unit and/or counseling patient: Time with patient: less than 15 minutes SAXOPHONE ASSEMBLER- PN:Heidi Post-Op Subjective Date/time seen: 05/23/23 12:02 Interval history: Feeling better. And had a bowel movement. CT is unchanged. Tolerating food will send SAXOPHONE ASSEMBLER - PN: Obj Data Vital Signs Vital Signs: Vital Signs - 24 hr 05/22/23 23:10 05/22/23 22:55 05/23/23 04:44 Temperature 98.1 F 98.3 F Pulse Rate 73 62 Respiratory Rate 17 17 Blood Pressure 116/73 96/50 L Pulse Oximetry 100 99 Oxygen Delivery Room Air 05/23/23 09:20 Temperature Pulse Rate Respiratory Rate 18 Blood Pressure Pulse Oximetry 99 Oxygen Delivery Room Air Intake/Output Intake/Output: Intake & Output 05/20/23 05/21/23 05/22/23 05/23/23 23:59 23:59 23:59 23:59 Intake Total 1050 Balance 1050 Meds/Results Medications: Active Medications Generic Name Dose Route Start Last Admin Trade Name Freq PRN Reason Stop Dose Admin Hydrocodone Bitart/Acetaminophen 1 tab 05/22/23 21:02 Hydrocodone/Acetaminophen (*Crx) 5-325 Mg Tablet PO 05/24/23 21:01 Q6H PRN Pain Rated 4-6 Dextrose/Lactated Ringer's 1,000 mls @ 125 mls/hr 05/22/23 21:05 05/23/23 07:29 Dextrose 5%/Lactated Ringers IV CONT Infused .Q8H ALEXA Infusion Metoclopramide HCl 5 mg 05/22/23 21:05 Metoclopramide Hcl Inj 10 Mg/2 Ml Vial IV PUSH 05/24/23 21:04 Q6HR PRN Nausea Radiology Results: ITS Impressions Abdomen/Pelvis CT 05/23/23 09:50 IMPRESSION: 1. Postoperative change of recent left salpingo-oophorectomy with with unchanged small amount of free fluid in the operative bed and cul-de-sac with resolution of the prior small amount of associated gas. Labs 05/23/23 08:02 Labs: Laboratory Results - last 24 hr 05/23/23 08:02 WBC 7.1 RBC 4.48 Hgb 11.8 L Hct 38.4 MCV 85.7 MCH 26.3 MCHC 30.7 L RDW 14.0 Plt Count 353 MPV 9.9 Immature Gran % (Auto) 0.3 Neut % (Auto) 65.4 Lymph % (Auto) 27.0 Baxter % (Auto) 6.2 Eos % (Auto) 0.7 Baso % (Auto) 0.4 Lymph # (Auto) 1.91 Baxter # (Auto) 0.4 Eos # (Auto) 0.1 Baso # (Auto) 0.0 Abs Immat Gran (auto) 0.02 Absolute Neuts (auto) 4.6 Absolute Nucleated RBC 0.000 Nucleated RBC % 0.0
--- NOTE | 2023-05-23 12:03 | PM.DS ---
DS: Admitting Diagnosis Discharge Date 05/23/2023 Admitting Diagnosis Abdominal pain/constipation DS: Discharge Diagnosis Discharge Diagnosis (1) Constipation: Code(s): K59.00 - Constipation, unspecified Status: Acute (2) Pelvic pain: Code(s): R10.2 - Pelvic and perineal pain Status: Acute DS: Summary Hospital Course Reason for hospitalization: Patient was admitted from the stool secondary to lower abdominal pain and collection of fluid postop 3 days from left salpingo-oophorectomy Hospital Course: The patient was watched in her white count remained. The CT remained unchanged. She is having a bowel movement and was feeling markedly better. White count was normal and her temperature was good. She was eating regular diet. She is to follow-up in 2 weeks. Time Spent with Patient Time attestation: Total time spent providing and/or coordinating discharge services: DS: Data Data Completed and Pending Labs on day of discharge: Labs from last 24 hours 05/23/23 08:02 WBC 7.1 RBC 4.48 Hgb 11.8 L Hct 38.4 MCV 85.7 MCH 26.3 MCHC 30.7 L RDW 14.0 Plt Count 353 MPV 9.9 Immature Gran % (Auto) 0.3 Neut % (Auto) 65.4 Lymph % (Auto) 27.0 [place] % (Auto) 6.2 Eos % (Auto) 0.7 Baso % (Auto) 0.4 Lymph # (Auto) 1.91 [place] # (Auto) 0.4 Eos # (Auto) 0.1 Baso # (Auto) 0.0 Abs Immat Gran (auto) 0.02 Absolute Neuts (auto) 4.6 Absolute Nucleated RBC 0.000 Nucleated RBC % 0.0 Discharge Plan Discharge Attending physician on discharge: Santos Howe Discharging Clinician: Santos Howe Patient Disposition: Home, Self-Care Activity: may shower, no straining and pelvic rest Diet: heart healthy Wound Care Instructions: follow printed instructions Patient Instructions: Antibiotic Form Stand Alone Forms: General Discharge Information Follow-up/Referrals: Santos Howe MD [Physician] - Discharge Medications: Continued omeprazole 40 mg capsule,delayed release(DR/EC) 40 mg PO DAILY dextroamphetamine-amphetamine 10 mg capsule,extended release 24hr 10 mg PO DAILY dextroamphetamine-amphetamine 5 mg tablet 5 mg PO DAILY Rx Instructions: TAKES IN THE AFTERNOON Adult Multivitamin Gummies 1 gum PO DAILY All Day Allergy (cetirizine) 1 tab-cap PO DAILY hydrocodone-acetaminophen 5-325 mg tablet 1 tablet PO Q4H PRN (Reason: Pain (Scale Score 4-6)) Date of admission: 05/22/23 22:50 Primary Care Provider: AdeelSha Admitting Provider: Santos Howe Attending physician on admission: Santos Howe Condition: Stable
== END 2023-05-23 13:20 | disposition home or self-care (01) ==
PROVIDERS: Admitting Provider Obstetrics & Gynecology; PCP Family Medicine; Visit Provider Obstetrics & Gynecology
DX: K59.00 Constipation, unspecified (principal); R10.2 Pelvic and perineal pain; Z98.890 Other specified postprocedural states; Z90.721 Acquired absence of ovaries, unilateral; N80.9 Endometriosis, unspecified; F41.9 Anxiety disorder, unspecified; J45.909 Unspecified asthma, uncomplicated; Z87.891 Personal history of nicotine dependence; Z79.891 Long term (current) use of opiate analgesic
CPT/HCPCS: 36415; 74176; 85025; 96360; 96361; 96365; A9270; G0378; G0379; J0690; J7121

== ENCOUNTER 2024-04-07 23:01 | Emergency (ER) | payer OTHER, SELFPAY ==
--- OUTSIDE RECORDS SUMMARY | 2024-04-07 23:03 | XMS_ITS | Clinical Summary ---
Author Organization [facility] Address [address] [place] [address]. [place], [place] [id number] [place] [id number] Care Team Providers Care Head Housekeeper Name Role Phone Johan Delaney Primary Care Provider [phone] Allergies No known active allergies Medications FLUoxetine 20 MG capsule Take 20 mg by mouth daily. 07/28/2020 Active Active Problems No known active problems Immunizations Name Administration Dates Next Due Dtap 12/05/1997 Dtp 12/17/1993,03/12/1993,01/13/1993 ,1992 Hepatitis B Pediatric 06/11/1993,1992,09/03 Hib 03/12/1993,01/13/1993,1992 MMR 12/05/1997,06/11/1993 Opv 12/17/1993,01/13/1993,1992 Polio IPV (Ipol) 12/05/1997 Tdap (Generic) 04/10/2015 Family History Medical History Relation Comments Diabetes Father Diabetes Maternal Grandfather Other Maternal Grandfather Diabetes Maternal Grandmother Other Maternal Grandmother Melanoma Mother Diabetes Paternal Grandfather Other Paternal Grandfather Diabetes Paternal Grandmother Other Paternal Grandmother Diabetes Sister Relation Status Comments Father Maternal Grandfather Maternal Grandmother Mother Paternal Grandfather Paternal Grandmother Sister Social History Tobacco Use Types Packs/Day Years Used Date Smoking Tobacco: Every Day Cigarettes Electronic Cigarettes Smokeless Tobacco: Never Tobacco Cessation:Ready to Q uit: No; Counseling Given: Yes Alcohol Use Standard Drinks/Week Comments No 0 (1 standard drink = 0.6 oz pur e alcohol) AUDIT-C Answer Date Recorded Frequency of Alcohol Consumption Never 10/03/2018 Average Number of Drinks Not on file 019 Frequency of Binge Drinking Not on file 09/05 PHQ-2 Answer Date Recorded PHQ-2 Score - If the patient scores above 3, please move on to questions 3-9 1 10/16/2020 Comments No Sex and Gender Information Value Date Recorded Sex Assigned at Not on file Legal Sex Female 7:42 AM CDT Gender Identity Not on file Sexual Orientation Not on file Last Filed Vital Signs Vital Sign Reading Time Taken Comments Blood Pressure 122/70 12/08/2020 1:14 PM CDT Pulse 58 12/08/2020 1:14 PM CDT Temperature 36.2 ??C (97.2 ??F) 12/08/2020 1:14 PM CD T Respiratory Rate 20 10/16/2020 9:52 AM CDT Oxygen Saturation 98% 12/08/2020 1:14 PM CDT Inhaled Oxygen Concentration - - Weight 102.5 kg (226 lb) 12/08/2020 1:14 PM CDT Height 162.6 cm (5' 4 ) 12/08/2020 1:14 PM CDT Body Mass Index 38.79 12/08/2020 1:14 PM CDT Plan of Treatment Health Maintenance Due Date Last Done Comments Cervical Cancer Screening Pap Smear (Age 30 to 64) Every 3 Years 1992 Annual Physical 08/31/1995 Pneumococcal Vaccine: Pediatrics (0 to 5 Years) and At-Risk Patients (6 to 64 Years) (1 of 2 - PCV) 1998 Hepatitis C 2010 Cervical Cancer Screening Pap with HPV Testing (Age 30 to 64) Every 5 Years 2022 Cervical Cancer Screening with HPV 2022 COVID-19 Vaccine ( season) 2023 Influenza Adult (#1) 2023 DTaP, Tdap and Td Vaccines (3 - Td or Tdap) 04/10/2025 04/10/2015, 12/05/1997, 12/17/1993, Additional history exists Hepatitis B Vaccines Completed 06/11/1993, 1992, 1992 HPV Vaccines Aged Out No longer eligi ble based on patient's age to complete this topic Meningococcal B Vaccine Aged Out No l onger eligible based on patient's age to complete this topic Meningococcal Vaccine Aged Out No miladis nunu eligible based on patient's age to complete this topic RSV Immunizations Under 20 Months Aged Out No longer eligible based on patient's age to complete this topic [facility] Advance Directives Documents on File Type Date Recorded Patient Prevention Specialist Expl anation Advance Directives and Living Will 11/11/2020 12:00 AM ADVANCED DIRECTIVES Care Teams Head Housekeeper Relationship Specialty Start Date End Date Johan Delaney PA [address] [place] [phone] PCP - General PHYSICIAN ASSOCIATE PROFESSOR OF ANTHROPOLOGY 03/29/21
--- OUTSIDE RECORDS SUMMARY | 2024-04-07 23:03 | XMS_ITS | Encounter Summary ---
Author Organization [facility] Address [address] [place] [address]. [place] [address] [place] [address] Care Team Providers Care Aircraft Maintenance Director Name Role Phone Sha Anderson MD Primary Care Provider Johan Delaney Primary Care Provider [phone] Encounter Details Date Type Department Care Team (Late st Contact Info) Description 08/11/2018 Abstract SFL CONVERSION [address] [place] [address] , Generic Conversion, Social History Tobacco Use Types Packs/Day Years Used Date Smoking Tobacco: Never Assessed Comments Unknown Sex and Gender Information Value Date Recorded Sex Assigned at Not on file Legal Sex Female 7:42 AM CDT Gender Identity Not on file Sexual Orientation Not on file documented as of this encounter Plan of Treatment Not on file documented as of this encounter Visit Diagnoses Not on filedocumented in this encounter Additional Health Concerns Infection Onset Date Last Indicated Resolved Time COVID-19 Rule Out 11/09/2020 11/08/2020 11/09/2020 9:19 PM CDT documented as of this encounter Care Teams Aircraft Maintenance Director Relationship Specialty Start Date End Date Sha Anderson MD [address] [place] [phone] PCP - General FAMILY PRACTICE 10/03/18 03/28/21 Johan Delaney PA [address] [place] [phone] PCP - General PHYSICIAN LEGISLATIVE ANALYST 1/24/22 documented as of this encounter
--- NOTE | 2024-04-07 23:26 | ED_ITS ---
HPI - General Chief complaint: Vaginal Bleeding Stated complaint: possible miscarriage Time Seen by Provider: 04/07/24 23:13 Source: patient and family Mode of arrival: ambulatory Limitations: no limitations History of Present Illness HPI Narrative: Patient is a 33-year-old female 6 weeks here with vaginal bleeding this evening and clots. She does not have significant pain but she does have some cramping in the lower abdomen bilaterally. Patient has left ovary and fallopian tube have been removed in the past with her endometriosis. She has an OBGYN. Complaint: vaginal bleeding Onset (ago): hour(s) (5) Pain Consistency: intermittent Location: pelvis Severity: mild Severity scale (1-10): 1 Quality: Cramping Radiation: pelvis Relieving factors: none Exacerbating factors: none Associated symptoms: denies other symptoms Vaginal discharge: none Vaginal bleeding: heavy and clots Patient : Yes OB History - Current : no complications OB History - Previous Pregnancies: no complications care: followed by OB Related Data Home Medications ?Medication ?Instructions ?Recorded ?Confirmed ?Last Taken ?Type Adult Multivitamin Gummies 1 gum PO DAILY 05/18/23 05/22/23 Unknown History All Day Allergy (cetirizine) 1 tab-cap PO DAILY 05/18/23 05/22/23 Unknown History dextroamphetamine-amphetamine 5 mg 5 mg PO DAILY 05/18/23 05/22/23 Unknown History tablet dextroamphetamine-amphetamine ER 10 mg PO DAILY 05/18/23 05/22/23 Unknown History 10 mg 24hr capsule,extend release omeprazole 40 mg capsule,delayed 40 mg PO DAILY 05/18/23 05/22/23 Unknown History release hydrocodone 5 mg-acetaminophen 325 1 tablet PO Q4H PRN Pain (Scale 05/22/23 05/22/23 Unknown History mg tablet Score 4-6) Allergies Allergy/AdvReac Type Severity Reaction Status Date / Time No Known Allergies Allergy Verified 05/22/23 18:19 Review of Systems Review of Systems: All systems reviewed & are unremarkable except as noted in HPI and below Constitutional: Constitutional: Reports no additional constitutional complaints Eyes: Eyes: Reports no additional eye complaints ENT: Reports system reviewed and no additional complaints, except as documented Cardiovascular: Cardiovascular: Reports no additional cardiovascular complaints Respiratory: Respiratory: Reports no additional respiratory complaints Gastrointestinal: Gastrointestinal: Reports no additional gastrointestinal complaints Genitourinary: Genitourinary: Reports no additional female genitourinary complaints Musculoskeletal: Musculoskeletal: Reports no additional musculoskeletal complaints Integumentary/Breasts: Skin/Breast: Reports system reviewed and no additional complaints, except as docu Neurologic: Reports system reviewed and no additional complaints, except as documented Psychiatric: Psychiatric: Reports no additional psychiatric complaints Endocrine: Endocrine: Reports no additional endocrine complaints Hematologic/Lymphatic: Hematologic/Lymphatic: Reports no additional hematologic/lymphatic complaints Allergic/Immunologic: Allergic/Immunologic: Reports no additional allergic/ immunologic complaints PMFSH Past Medical History Medical History Endometrioma Endometriosis Asthma Anxiety Alternating constipation and diarrhea Bloating Surgical History Surgical History History of left salpingo-oophorectomy 05/19/2023 Family History Family History Father Asthma Diabetes mellitus Sibling Asthma Diabetes mellitus Grandparent Chronic obstructive pulmonary disease Congestive heart failure Diabetes mellitus Father Chronic obstructive pulmonary disease Social History Social History Smoking status: Former smoker Tobacco type: e-cigarettes/vaping Alcohol intake: never Alcohol use details: monthly Substance use: never Do You Feel Safe in your Home?: Yes Lack of Transportation: No Lack of Food: Never True Current Housing: I Have Housing Concerned About Future Housing: No Difficulty Paying Gas/Electric Bills: No Difficulty Paying for Meds: No Currently Unemployed: No Education: High School Diploma/GED Difficulty w/ Childcare or Family Care: No Spiritual care concerns: No Exam Const: General: healthy appearing Nutritional Appearance: well nourished Orientation/consciousness: patient oriented x3 Other: Patient appears sad due to current situation. HENMT: Head: normal to inspection Ears: external ears normal Face/Nose/Sinus: Normal external nose present Eyes: Conjunctivae: conjunctivae normal Pupils: Equal, round and reactive pupils present EOM: EOMs intact bilaterally Neck: Neck: normal visual inspection Chest: Chest palpation & inspection: normal inspection of the chest Resp: Effort & Inspection: normal respiratory effort and not labored Auscultation: clear to auscultation bilaterally and no crackles Cardio: Rate: regular rate Rhythm: regular rhythm Heart sounds: no murmurs GI: Inspection: non-distended GI Palp: Yes Soft to palpation and No Tenderness to palpation present (GI) Auscultation: normal bowel sounds : General: Yes bladder normal to palpation Other: Deferred vaginal exam at this time Back/Spine/Pelvis: Back: no CVA tenderness Skin: General skin exam: normal color Rashes: no rashes Wounds: no wounds Neuro: General: patient oriented x3 Cranial nerves: Yes Nystagmus not present Speech: normal speech Gait exam (Neuro): Normal gait present Extrem: General: normal to inspection Psych: Mental Status: mental status grossly normal Affect: normal affect MDM - OB/Uterine Contractions MDM Narrative Medical decision making narrative: patient is a 33-year-old female with some vaginal bleeding and clots at 6 weeks . We will do a miscarriage workup at this time. Patient decided to leave AMA at this time. There were no problems happening to cause AMA she just decided that she wanted to go home at this time. She signed forms. Labs will be stopped at this time from running. Urine is all I have at this time and it is nonspecific. Lab Data Attestation: I reviewed the patient's lab results. Labs: Lab Results 04/07/24 Range/Units 23:40 Urine Color Light yellow (Yellow) Urine Appearance Sl cloudy A (Clear) Urine pH 6.0 (5.0-8.0) Ur Specific Antelope 1.010 (1.010-1.020) Urine Protein Negative (Negative) Urine Glucose (UA) Negative (Negative) Urine Ketones Negative (Negative) Ur Blood (Man) 2+ H (Negative) Urine Nitrate Negative (Negative) Urine Bilirubin Negative (Negative) Urine Urobilinogen 0.2 (0.2-1.0) mg/dL Leukocyte Esterase Rfl Trace H (Negative) ROXY/UL Urine RBC 3-5 H (0-2) /hpf Ur Squamous Epith Cells Few (Few) /hpf Amorphous Sediment Moderate H (None) Urine Mucus Heavy H /lpf Discharge Plan Discharge Clinical Impression: Threatened in first trimester Patient Disposition: Left Against Medical Advice Condition: Stable Patient Language: Indonesian Prescriptions: No Action omeprazole 40 mg capsule,delayed release(DR/EC) 40 mg PO DAILY dextroamphetamine-amphetamine 10 mg capsule,extended release 24hr 10 mg PO DAILY dextroamphetamine-amphetamine 5 mg tablet 5 mg PO DAILY Rx Instructions: TAKES IN THE AFTERNOON Adult Multivitamin Gummies 1 gum PO DAILY All Day Allergy (cetirizine) 1 tab-cap PO DAILY hydrocodone-acetaminophen 5-325 mg tablet 1 tablet PO Q4H PRN (Reason: Pain (Scale Score 4-6)) Follow-up/Referrals: Elaina,JOSEPH Prado [Primary Care Provider] - Time of Disposition: 00:54
--- NOTE | 2024-04-07 23:33 | PC.NURSE ---
called for lab to come down to draw.
--- NOTE | 2024-04-08 | PC.NURSE ---
called about urine and swabs sent down on another patient, reminded lab, this patient still needs blood draw.
[2024-04-08 00:11] LABS: Add Urine Microscopic? YES; Bilirubin Urine Negative (Negative); Blood Urine 2+ (Negative); Color Urine Light Yellow (Yellow); Glucose Urine UA Negative (Negative); Ketones Urine Negative (Negative); Leukocyte Esterase Ur Trace LEU/UL (Negative); Nitrate Urine Negative (Negative); Protein Urine Negative (Negative); Urobilinogen Urine 0.2 mg/dL (0.2-1.0)
[2024-04-08 00:25] LABS: Amorphous Sediment Urine Moderate; Appearance Urine Sl Cloudy (Clear); Mucus Urine Heavy /lpf; Squamous Epithelial Cell Urine Few /hpf (Few)
--- NOTE | 2024-04-08 00:30 | PC.NURSE ---
This RN rayna blood on this patient and walked to lab, called and spoke to jered.
--- NOTE | 2024-04-08 00:32 | PC.NURSE ---
jered called from lab stating that we also needed a blue top, this RN requested that lab come draw what they need.
--- NOTE | 2024-04-08 00:39 | PC.NURSE ---
Patient at nurses station wishing to AMA, ERP aware. Patient stated that she is going to follow up with OBGYN in the morning for follow up. Patient is A/O x 4, no other complaints, states she just wants to go home and needs to check on her son. at side during coversation.
== END 2024-04-08 00:41 | disposition left against medical advice (07) ==
PROVIDERS: Emergency Provider Emergency Medicine; PCP Physician Assistant
DX: O20.0 Threatened abortion (principal); Z3A.01 Less than 8 weeks gestation of pregnancy; Z87.891 Personal history of nicotine dependence
CPT/HCPCS: 81001; 99283

== ENCOUNTER 2025-01-10 12:50 | Outpatient (CLI) | payer OTHER, SELFPAY ==
[2025-01-10 13:16] LABS: Hematocrit 37.9 % (37.0-47.0); Hemoglobin 12.3 g/dL (12.0-15.0)
== END 2025-01-10 12:51 | disposition home or self-care (01) ==
LOC: ANHSURGERY 12:54
PROVIDERS: PCP Registered Nurse; Visit Provider Obstetrics & Gynecology
DX: R10.20 Pelvic and perineal pain unspecified side (principal); Z01.818 Encounter for other preprocedural examination
CPT/HCPCS: 36415; 85014; 85018; 86850; 86900; 86901

== ENCOUNTER 2025-01-17 03:40 | Day surgery (SDC) | payer OTHER, SELFPAY ==
[2025-01-07 12:55] VITALS: BMI 42.6
--- NOTE | 2025-01-07 13:02 | PC.NURSE ---
[facility] has started construction of its new state of the art ER which will open Spring 2026. With this, we anticipate parking may be a challenge for some our surgical patients and families. Parking spaces are limited but are available for all Surgical, obstetrics, and ER patients sharing this lot. If you arrive and find you are having a hard time finding a parking space, please note that we understand the challenges, please drive around the hospital and park near Hospital Entrance 1. When you enter this entrance, you can ask a volunteer to direct or take you back to the surgical waiting area to check in. We appreciate everyone?s understanding of these expected challenges while we build for your future. Report to the Outpatient Waiting Room, entrance under the green pavilion located off [address], at time _1015_ on date _[phone]_. Planned Procedure Time: _1215_.? Time changes happen often and if your time is changed the preop area will call you the afternoon before. - You and your visitor will be asked to self-screen and do not enter if you have any COVID symptoms. Please call surgeon if you need to reschedule. - A mask is optional within the hospital at this time. Patients may have clear liquids (water, carbonated beverages, clear teas, apple juice) until 3 hours prior to surgery with a maximum of 20 ounces. - No food from midnight until time of surgery and no smoking, or chewing tobacco (or any form of nicotine). No chewing gum, candy or mints. Take only the following medications with a SIP of water on the morning of surgery: ____None DO NOT STOP ANY OF YOUR OTHER PRESCRIPTION MEDICATIONS PRIOR TO SURGERY EXCEPT THE FOLLOWING Hold all vitamins and supplements for 3 days per anesthesiologist. Medications to discontinue per physician Date to take last dose Please no make-up, nail upper sorbian, hairspray, perfume, deodorant, or body powder the day of surgery.? No jewelry (including any body piercings) or valuables the day of surgery, leave them at home.? Please take a shower or bath the night before, or the morning of, surgery with an antibacterial soap.? Wear comfortable, loose fitting clothing.? - Jewelry must be removed prior to entering the operating room.? Rings and piercings that are not removed may be cut off. - The hospital will not accept responsibility for valuables.? - Please leave all valuables, including medications, at home the day of surgery. If you are going home after surgery, a licensed contract driver must drive you home.? - NO public transportation without another adult if you receive anesthesia. - We recommend that an adult stay with you for 24 hours following discharge. - We also recommend that you do not drive, make important decision, drink alcoholic beverages, or take any drugs that were not prescribed by your health care provider for at least 24 hours after your discharge time. Follow any additional instructions given to you from your surgeon. Telephone instructions given to __Marlene___and asked if any additional questions and then verbalized understanding. Patient advised to call surgeon office or pre surgery nurse liaison [phone] if any additional questions.
--- NOTE | 2025-01-14 07:13 | P.HP_ITS ---
H&P: HPI History of Present Illness Date/Time: 01/14/25 07:13 Chief Complaint: Pelvic pain/dyspareunia/heavy vaginal bleeding Narrative: Is a 32-year-old 1 para 1 admitted for laparoscopy/hysteroscopy/dila tation curettage secondary to pelvic pain dyspareunia and bleeding. She has an ultrasound which shows a fair amount of free fluid in her left her ovary is surgically absent. The right ovary has a cyst she still would like to have a and and would like to have a diagnosis for these problems she will undergo hysteroscopy/dilatation curettage/laparoscopy risks and benefits reviewed including not exclusive of , aspiration pneumonia, bleeding, transfusion, perforation injury to bowel, bladder, ureters, or other internal organs with need for open laparotomy. She received the ACOG handouts entitled laparoscopy as well as hysteroscopy and dilatation curettage respectively. She had all questions answered. She asked to proceed Review of Systems Review of Systems: All systems reviewed & are unremarkable except as noted in HPI and below Constitutional: Constitutional: Reports no additional constitutional complaints Eyes: Eyes: Reports no additional eye complaints ENT: Reports system reviewed and no additional complaints, except as documented Cardiovascular: Cardiovascular: Reports no additional cardiovascular complaints Respiratory: Respiratory: Reports no additional respiratory complaints Gastrointestinal: Gastrointestinal: Reports no additional gastrointestinal complaints Genitourinary: Genitourinary: Reports no additional female genitourinary complaints Musculoskeletal: Musculoskeletal: Reports no additional musculoskeletal complaints Integumentary/Breasts: Skin/Breast: Reports system reviewed and no additional complaints, except as docu Neurologic: Reports system reviewed and no additional complaints, except as documented Psychiatric: Psychiatric: Reports no additional psychiatric complaints Endocrine: Endocrine: Reports no additional endocrine complaints Hematologic/Lymphatic: Hematologic/Lymphatic: Reports no additional h ematologic/lymphatic complaints Allergic/Immunologic: Allergic/Immunologic: Reports no additional allergic/immunologic complaints FOR[facility]LY [facility], [facility] Past Medical History Medical History Endometrioma Endometriosis Asthma Anxiety Alternating constipation and diarrhea Bloating Surgical History Surgical History History of left salpingo-oophorectomy 05/19/2023 Family History Family History Father Asthma Diabetes mellitus Sibling Asthma Diabetes mellitus Grandparent Chronic obstructive pulmonary disease Congestive heart failure Diabetes mellitus Father Chronic obstructive pulmonary disease Social History Social History Smoking status: Former smoker Tobacco type: e-cigarettes/vaping Alcohol intake: current Alcohol use details: monthly Substance use: never Do You Feel Safe in your Home?: Yes Lack of Transportation: No Lack of Food: Never True Current Housing: I Have Housing Concerned About Future Housing: No Difficulty Paying Gas/Electric Bills: No Difficulty Paying for Meds: No Currently Unemployed: No Education: High School Diploma/GED Difficulty w/ Childcare or Family Care: No Living arrangements: with family Spiritual care concerns: No Meds Home Medications and Allergies Home Medications ?Medication ?Instructions ?Recorded ?Confirmed ?Type Adult Multivitamin Gummies 1 gum PO DAILY 05/18/2306/28 History All Day Allergy (cetirizine) 1 tab-cap PO DAILY 01/07/25 History dextroamphetamine-amphetamine 5 mg 5 mg PO DAILY 05/1701/07/25 History tablet omeprazole 20 mg capsule,delayed 20 mg PO DAILY 01/07/25 History release Allergies Allergy/AdvReac Type Severity Reaction Status Date / Time No Known Allergies Allergy Verified 01/07/25 12:52 Exam Const: General: cooperative, healthy appearing and comfortable Nutritional Appearance: overweight Orientation/consciousness: oriented to person, oriented to place and oriented to time HENMT: Head: normal to inspection Resp: Effort & Inspection: normal respiratory effort Cardio: Rate: regular rate Rhythm: regular rhythm Heart sounds: S1 normal heart sound present and S2 normal heart sound present GI: Inspection: normal to inspection : External Female Exam: normal external appearance Speculum Exam - Vagina: normal appearance of the vagina Speculum Exam - Cervix: normal appearance of the cervix Bimanual exam- vagina & uterus: enlarged Bimanual Exam- Adnexa, other: tender bilaterally Assessment and Plan Assessment and plan (1) Pelvic pain: Code(s): R10.2 - Pelvic and perineal pain Status: Acute (2) Excessive bleeding: Code(s): R58 - Hemorrhage, not elsewhere classified Status: Acute Plan Proceed with laparoscopy/hysteroscopy/dilatation and curettage
[2025-01-17] VITALS (9 sets, daily range): BP systolic 112–134; BP diastolic 64–79; PULSE 61–92; RESP 12–20; TEMP 36.3–36.8; O2SAT 98–100
--- NOTE | 2025-01-17 06:42 | WPDHPUPDATE1 ---
History and Physical Update Update Date/Time: 01/17/25 06:42 History and Physical has been reviewed, including an updated exam of the patient. There are NO changes in the patient's condition. Risks, benefits, and alternatives have been discussed and questions answered. Patient agrees to proceed with procedure.
[2025-01-17] MEDS: ACETAMINOPHEN 500 MG TABLET 1000 MG PO (10:40)
[2025-01-17] MEDS: LACTATED RINGERS 1,000 ML 30 ML IV CONT ×2 (10:40→13:52)
[2025-01-17] MEDS: KETOROLAC 15 MG/ML VIAL (*BKC) IV PUSH (10:50)
--- NOTE | 2025-01-17 12:02 | WPDANESEPPF ---
Anes - Initial Pre Proc Eval Procedure: Operation Date: 01/17/25 12:15 Proposed Procedures p Diagnostic Laparoscopy, Hysteroscopy with Dilation and Curettage - Santos Arriaga MD Date/Time: 01/17/25 12:02 Surgeon: Santos Arriaga MD Pre Op Diagnosis: Pelvic pain, Heav bleeding, Dyspareunia Patient Data Age: 34 Gender: F Height: 1.63 m Weight: 113.3 kg Last Vital Signs Temp 36.8 C 01/17/25 10:25 Pulse 63 01/17/25 10:25 Resp 16 01/17/25 10:25 BP 133/64 01/17/25 10:25 Pulse Ox 99 01/17/25 10:25 O2 Del Method Room Air 01/17/25 10:25 Allergies Allergy/AdvReac Type Severity Reaction Status Date / Time No Known Allergies Allergy Verified 01/17/25 10:50 Home Medications ?Medication ?Instructions ?Recorded ?Confirmed ?Type Adult Multivitamin Gummies 1 gum PO DAILY 05/18/23 01/17/25 History All Day Allergy (cetirizine) 1 tab-cap PO DAILY 05/18/23 01/17/25 History dextroamphetamine-amphetamine 5 mg 5 mg PO DAILY 05/18/23 01/17/25 History tablet omeprazole 20 mg capsule,delayed 20 mg PO DAILY 01/07/25 01/17/25 History release hydrocodone 5 mg-acetaminophen 325 1 tablet PO Q4H PRN pain #20 tabs 01/17/25 Rx mg tablet Patient hx anesthesia problems: none Family hx anesthesia problems: none Results Review: All pre-operative results and documents have been reviewed as part of the pre-operative evaluation. [facility] Past Medical History Medical History Endometrioma Endometriosis Asthma Anxiety Alternating constipation and diarrhea Bloating Surgical History Surgical History History of left salpingo-oophorectomy 05/19/2023 Family History Family History Father Asthma Diabetes mellitus Sibling Asthma Diabetes mellitus Grandparent Chronic obstructive pulmonary disease Congestive heart failure Diabetes mellitus Father Chronic obstructive pulmonary disease Social History Social History Smoking status: Former smoker Tobacco type: e-cigarettes/vaping Alcohol intake: current Alcohol use details: monthly Substance use: never Do You Feel Safe in your Home?: Yes Lack of Transportation: No Lack of Food: Never True Current Housing: I Have Housing Concerned About Future Housing: No Difficulty Paying Gas/Electric Bills: No Difficulty Paying for Meds: No Currently Unemployed: No Education: High School Diploma/GED Difficulty w/ Childcare or Family Care: No Living arrangements: with family Spiritual care concerns: No Anes - Eval Final PreProcedure Day of Procedure 01/17/25 12:02 Patient weight: morbidly obese Heart: regular rate and rhythm Lungs: clear to auscultation Airway: Mallampati scale class II Neurological: alert and oriented Last oral intake: >/= 8 hours ASA classification: III Emergent: no Anesthetic plan: proceed Anesthesia type and monitoring: general ETT and standard monitoring Results Review: All pre-operative results and documents have been reviewed as part of the pre-operative evaluation. Informed Consent: The patient's anesthetic plan and its attendant risks and benefits were discussed with the patient/family/POA. Questions were solicited and answers provided to the satisfaction of the patient/family/POA.
--- NOTE | 2025-01-17 12:42 | S_PTH ---
PATIENT: Marlene Purcell LOC: [facility] U#:[id number] AGE/SX: 34/F ROOM: RE01/17/[address]: Santos Arriaga MD : 1990 BED: DIS: 01/17/2025 SPEC #: [id number] RECD: 01/17/25 13:19 STATUS: CAIO REQ #: [id number] VERÓNICA: 01/17/25 12:[address]: Santos Howe DEPT: [facility] Surgical RECD BY: Patricia Celis ENTERED: 01/17/25 13:19 SP TYPE: Surgical OTHR DR: Feliz Pickens, LIFT TRUCK OPERATOR Tissues: A - Endometrial Curettings Procedures: Hematoxylin and Eosin Stain Gross and Microscopic Level 4
--- NOTE | 2025-01-17 12:49 | P.OP_ITS ---
Procedure Note - Detailed Date of Procedure 01/17/25 Pre-op Diagnosis Pelvic pain, Heav bleeding, Dyspareunia Post-op Diagnosis Other (Pelvic pain/heavy bleeding/dyspareunia/endometriosis) Procedure Performed Laparoscopy with destruction of endometriosis/hysteroscopy/dilatation curettage Surgeon Santos Arriaga MD Anesthesia General Indications 34-year-old female with pelvic pain dyspareunia excessive heavy bleeding Findings On hysteroscopy and normal appearing endometrium was seen with the uterus sounded to 7cm on laparoscopy multiple areas of endometriosis were seen right left uterosacral ligaments l right ovary and tube. Normal-appearing gallbladder and liver edge Description of Procedure Patient was prepped draped in the normal sterile fashion placed in dorsal lithotomy position. Under excellent general trach anesthesia weighted speculum placed in posterior fornix vagina. Anterior lip was then grasped with a single- tooth tenaculum. The Caban's cannula inserted the cervix and attached to the single-tooth to be used later for uterine manipulation. After emptying the bladder clear urine the weighted speculum was removed the gloves were changed. Supraumbilical incision made the Veress needle passed in the abdomen. Abdomen filled with CO2 gas [id number]. The 5mm trocar advanced under direct visualization assuring no injury. Patient placed in Trendelenburg and a suprapubic incision made. The 5 trocar advanced under direct visualization assuring no injury. The above findings were seen and photo documented. Irrigation was used to clear the serosanguineous fluid the cul-de-sac the areas of powder burn endometriosis along each uterosacral ligament were sharply the burned with monopolar cautery at 35 w per 2nd. There was a small amount of endometriosis on the right ovary and this was cauterized as well. Irrigation was undertaken to clear no other abnormalities were seen. Photo documentation of the appendix liver gallbladder were also taken the patient was placed in out of Trendelenburg. The trocars removed the gas removed from the abdomen. The incisions closed with 4 Monocryl and glue. The patient was awakened went recovery in satisfactory condition. All sponge, needle, instrument counts were correct. There were no immediate complications noted Estimated Blood Loss 5 Drains No Packing No Pathology Yes Complications No immediate complications Condition Stable Disposition PACU
[2025-01-17 12:59] LABS: BEDSIDEPREGUCG Negative (Negative)
--- NOTE | 2025-01-17 13:02 | SUR.PHASEI ---
DOCUMENTATION FROM THIS RN AT 1252 TAKEN IN PHASE I PACU.
[2025-01-17] MEDS: fentaNYL CITRATE INJ (*CRX) 100 MCG/2 ML VIAL 25 MCG IV PUSH ×3 (13:05→13:41)
[2025-01-17] MEDS: oxyCODONE HCL (*CRX) 5 MG TAB IR PO (14:16)
== END 2025-01-17 14:49 | disposition home or self-care (01) ==
PROVIDERS: PCP Registered Nurse; Visit Provider Obstetrics & Gynecology
PROC: 0UDB8ZZ Extraction of Endometrium, Via Natural or Artificial Opening Endoscopic (ICD-10-PCS; CPT 58558; principal; 2025-01-17 12:15)
DX: N80.3C3 Endometriosis of bilateral uterosacral ligament(s), unspecified depth (principal); N80.101 Endometriosis of right ovary, unspecified depth; N80.201 Endometriosis of right fallopian tube, unspecified depth; J45.909 Unspecified asthma, uncomplicated; F41.9 Anxiety disorder, unspecified; N80.9 Endometriosis, unspecified; E66.01 Morbid (severe) obesity due to excess calories; Z68.41 Body mass index [BMI] 40.0-44.9, adult; Z79.891 Long term (current) use of opiate analgesic; Z98.890 Other specified postprocedural states; Z87.891 Personal history of nicotine dependence; Z82.49 Family history of ischemic heart disease and other diseases of the circulatory system
CPT/HCPCS: 58662; 58558; 88305; A9270; J1100; J1885; J2003; J2250; J2405; J2704; J3010; J7030; J7120